=== PATIENT | male | born 1960 | race African-American/Black ===

== ENCOUNTER → 2024-03-24 | Day surgery (SDC) | payer MEDICARE, OTHER | END | disposition home or self-care (01) | LOC: FMAMMOTONE 13:00 | PROVIDERS: ATTEND Registered Nurse Medical-Surgical | PROC: 0HBT3ZX Excision of Right Breast, Percutaneous Approach, Diagnostic (ICD-10-PCS; principal; 2024-03-24) | DX: Z53.29 Procedure and treatment not carried out because of patient's decision for other reasons (principal); R92.1 Mammographic calcification found on diagnostic imaging of breast | CPT/HCPCS: 19081 ==